=== PATIENT | male | born 1985 | race Caucasian/White ===

== ENCOUNTER → 2020-07-15 | Outpatient (CLI) | payer OTHER ==
[~2020-07-15] MED LIST: ADMELOG100 UNIT/1 SC; AMARYL2 MG PO; AMMONIUM LACTA225 GM TP; AUGMENTIN 875-1 EACH PO; BENTYL 10MG CAP10 MG PO; BETADINE OINT 101 GM TOP; BUPROPION XL300 MG PO; CEFPODOXIME PR200 MG PO; CIPRO500 MG PO; CLINDAMYCIN HC300 MG PO; DECADRON6 MG PO; FELDENE10 MG PO; FLEXERIL 10 MG10 MG PO; GLUCOPHAGE 500500 MG GT; GLUCOPHAGE 500500 MG PO; HYDROCHLOROTH12.5 MG PO; HYDROCHLOROTHIA25 MG PO; HYDROCODON-ACE1 EAC4 PO; HYDROXYCHLOROQ200 MG PO; IBUPROFEN800 MG PO; INVOKANA300 MG PO; JANUVIA100 MG PO; JANUVIA25 MG PO; JARDIANCE25 MG PO; LACTINEX TABLET1 EA PO; LANTUS SOL100 UNIT/1 SQ; LANTUS100 UNIT/1 SQ; LISINOPRIL20 MG PO; LISINOPRIL40 MG PO; LODINE CAP 300300 MG PO; METFORMIN HCL500 MG PO; MS CONTIN TAB S15 MG PO; NEURONTIN 300300 MG PO; NOVOLOG 10100 UNITS/ INJ; NOVOLOG FL100 UNIT/1 SQ; OMNICEF 300 MG300 MG PO; OXYCODONE-ACET1 EACH PO; PERCOCET 10-321 EACH PO; TRULICITY1.5 MG/0.5 SQ; VANCOMYCIN IV; VANCOMYCIN1 GM/2002 IV; VIT C PO; VITAMIN C 500500 MG PO; VITAMIN D250000 UNIT PO; Voltaren Gel 1 % TOP; ZOFRAN ODT 4 MG4 MG PO
== END ==
LOC: WCC 08:00
PROC: 0JBR0ZZ Excision of Left Foot Subcutaneous Tissue and Fascia, Open Approach (ICD-10-PCS; principal; 2020-07-15)
DX: E11.621 Type 2 diabetes mellitus with foot ulcer (principal); L97.516 Non-pressure chronic ulcer of other part of right foot with bone involvement without evidence of necrosis; L97.522 Non-pressure chronic ulcer of other part of left foot with fat layer exposed; E11.610 Type 2 diabetes mellitus with diabetic neuropathic arthropathy; L84 Corns and callosities; E66.01 Morbid (severe) obesity due to excess calories; Z79.4 Long term (current) use of insulin; Z89.412 Acquired absence of left great toe; Z89.411 Acquired absence of right great toe

== ENCOUNTER 2020-07-20 16:37 | Emergency (ER) | payer OTHER ==
[~2020-07-20 16:37] MED LIST changes: -ADMELOG100 UNIT/1 SC; -AMARYL2 MG PO; -AMMONIUM LACTA225 GM TP; -BENTYL 10MG CAP10 MG PO; -CEFPODOXIME PR200 MG PO; -DECADRON6 MG PO; -GLUCOPHAGE 500500 MG GT; -HYDROCODON-ACE1 EAC4 PO; -HYDROXYCHLOROQ200 MG PO; -INVOKANA300 MG PO; -LACTINEX TABLET1 EA PO; -LISINOPRIL20 MG PO; -LODINE CAP 300300 MG PO; -OMNICEF 300 MG300 MG PO; -TRULICITY1.5 MG/0.5 SQ; -VANCOMYCIN1 GM/2002 IV; -ZOFRAN ODT 4 MG4 MG PO
[2020-07-20 17:26] LABS: HEMOGLOBIN 15.8 gm/dl (14.0-17.5); RED BLOOD COUNT 5.38 M/UL (4.20-5.50); WHITE BLOOD COUNT 12.7 K/UL (4.5-11.0)
[2020-07-20 17:42] LABS: BUN/CREATININE RATIO 19 (0-10)
[2020-07-20] MEDS ORDERED: CEFPODOXIME PR200 MG PO (18:49)
[2020-07-20] MEDS ORDERED: LODINE CAP 300300 MG PO (18:49)
[2020-07-20] MEDS ORDERED: ZOFRAN ODT 4 MG4 MG PO (18:49)
== END 2020-07-21 00:59 | disposition home or self-care (01) ==
LOC: ER1 16:37
PROVIDERS: Physician Assistant
DX: N10 Acute pyelonephritis (principal); E11.9 Type 2 diabetes mellitus without complications; Z79.4 Long term (current) use of insulin; Z87.440 Personal history of urinary (tract) infections
CPT/HCPCS: 80053; 81001; 83690; 85025; 87077; 87086; 87186; 96365; 96375; 99284; J0696; J1885; J2405; J7030; J7040

== ENCOUNTER → 2020-07-22 | Outpatient (CLI) | payer OTHER ==
[~2020-07-22] MED LIST changes: +ADMELOG100 UNIT/1 SC; +AMARYL2 MG PO; +AMMONIUM LACTA225 GM TP; +BENTYL 10MG CAP10 MG PO; +CEFPODOXIME PR200 MG PO; +DECADRON6 MG PO; +GLUCOPHAGE 500500 MG GT; +HYDROCODON-ACE1 EAC4 PO; +HYDROXYCHLOROQ200 MG PO; +INVOKANA300 MG PO; +LACTINEX TABLET1 EA PO; +LISINOPRIL20 MG PO; +LODINE CAP 300300 MG PO; +OMNICEF 300 MG300 MG PO; +TRULICITY1.5 MG/0.5 SQ; +VANCOMYCIN1 GM/2002 IV; +ZOFRAN ODT 4 MG4 MG PO
== END ==
LOC: WCC 08:00
DX: E11.621 Type 2 diabetes mellitus with foot ulcer (principal); L97.516 Non-pressure chronic ulcer of other part of right foot with bone involvement without evidence of necrosis; L97.525 Non-pressure chronic ulcer of other part of left foot with muscle involvement without evidence of necrosis; E11.610 Type 2 diabetes mellitus with diabetic neuropathic arthropathy; L84 Corns and callosities; E66.01 Morbid (severe) obesity due to excess calories; Z79.4 Long term (current) use of insulin; Z89.411 Acquired absence of right great toe; Z89.412 Acquired absence of left great toe; Z68.42 Body mass index [BMI] 45.0-49.9, adult

== ENCOUNTER → 2020-07-29 | Outpatient (CLI) | payer OTHER | LOC: WCC 08:00 | DX: E11.621 Type 2 diabetes mellitus with foot ulcer (principal); L97.516 Non-pressure chronic ulcer of other part of right foot with bone involvement without evidence of necrosis; L97.522 Non-pressure chronic ulcer of other part of left foot with fat layer exposed; E11.610 Type 2 diabetes mellitus with diabetic neuropathic arthropathy; E66.01 Morbid (severe) obesity due to excess calories; L84 Corns and callosities; Z79.4 Long term (current) use of insulin; Z79.899 Other long term (current) drug therapy; Z68.42 Body mass index [BMI] 45.0-49.9, adult; Z89.411 Acquired absence of right great toe; Z89.412 Acquired absence of left great toe ==

== ENCOUNTER 2020-08-05 15:52 | Emergency (ER) | payer OTHER ==
[~2020-08-05 15:52] MED LIST changes: -ADMELOG100 UNIT/1 SC; -AMARYL2 MG PO; -AMMONIUM LACTA225 GM TP; -BENTYL 10MG CAP10 MG PO; -DECADRON6 MG PO; -GLUCOPHAGE 500500 MG GT; -HYDROCODON-ACE1 EAC4 PO; -HYDROXYCHLOROQ200 MG PO; -INVOKANA300 MG PO; -LACTINEX TABLET1 EA PO; -LISINOPRIL20 MG PO; -OMNICEF 300 MG300 MG PO; -TRULICITY1.5 MG/0.5 SQ; -VANCOMYCIN1 GM/2002 IV
[2020-08-05 16:37] LABS: HEMOGLOBIN 16.7 gm/dl (14.0-17.5); RED BLOOD COUNT 5.7 M/UL (4.20-5.50); WHITE BLOOD COUNT 5.7 K/UL (4.5-11.0)
[2020-08-05 17:10] LABS: BUN/CREATININE RATIO 16 (0-10)
[2020-08-05] MEDS ORDERED: DECADRON6 MG PO (18:11)
[2020-08-05] MEDS ORDERED: HYDROXYCHLOROQ200 MG PO (18:11)
[2020-08-05] MEDS ORDERED: ZOFRAN ODT 4 MG4 MG PO (18:11)
== END 2020-08-05 21:37 | disposition home or self-care (01) ==
LOC: ER1 15:52
PROVIDERS: Family Medicine
DX: U07.1 COVID-19 (principal); E11.65 Type 2 diabetes mellitus with hyperglycemia; S91.302A Unspecified open wound, left foot, initial encounter; S91.301A Unspecified open wound, right foot, initial encounter; R00.0 Tachycardia, unspecified; E66.01 Morbid (severe) obesity due to excess calories; Z89.412 Acquired absence of left great toe; Z89.411 Acquired absence of right great toe; Z79.4 Long term (current) use of insulin
CPT/HCPCS: 71045; 80053; 82550; 82553; 83605; 83874; 84484; 85025; 87040; 93005; 96374; 96375; 99284; J1100; J2405; J7030; M0239

== ENCOUNTER → 2020-08-08 | Outpatient (CLI) | payer OTHER ==
[~2020-08-08] MED LIST changes: +ADMELOG100 UNIT/1 SC; +AMARYL2 MG PO; +AMMONIUM LACTA225 GM TP; +BENTYL 10MG CAP10 MG PO; +DECADRON6 MG PO; +GLUCOPHAGE 500500 MG GT; +HYDROCODON-ACE1 EAC4 PO; +HYDROXYCHLOROQ200 MG PO; +INVOKANA300 MG PO; +LACTINEX TABLET1 EA PO; +LISINOPRIL20 MG PO; +OMNICEF 300 MG300 MG PO; +TRULICITY1.5 MG/0.5 SQ; +VANCOMYCIN1 GM/2002 IV
== END ==
LOC: WCC 08:00
PROC: 0KBV0ZZ Excision of Right Foot Muscle, Open Approach (ICD-10-PCS; principal; 2020-08-08)
PROC: 0HRMXK3 Replacement of Right Foot Skin with Nonautologous Tissue Substitute, Full Thickness, External Approach (ICD-10-PCS; 2020-08-08)
DX: E11.621 Type 2 diabetes mellitus with foot ulcer (principal); L97.516 Non-pressure chronic ulcer of other part of right foot with bone involvement without evidence of necrosis; L97.522 Non-pressure chronic ulcer of other part of left foot with fat layer exposed; E11.610 Type 2 diabetes mellitus with diabetic neuropathic arthropathy; L84 Corns and callosities; E66.01 Morbid (severe) obesity due to excess calories; Z79.4 Long term (current) use of insulin; Z89.411 Acquired absence of right great toe; Z89.412 Acquired absence of left great toe

== ENCOUNTER 2020-08-11 11:24 | Inpatient (IN) | payer OTHER ==
[~2020-08-11] VITALS: Ht 182.9 cm; Wt 162.1 kg
[~2020-08-11 11:24] MED LIST changes: -ADMELOG100 UNIT/1 SC; -AMARYL2 MG PO; -AMMONIUM LACTA225 GM TP; -BENTYL 10MG CAP10 MG PO; -GLUCOPHAGE 500500 MG GT; -HYDROCODON-ACE1 EAC4 PO; -INVOKANA300 MG PO; -LACTINEX TABLET1 EA PO; -LISINOPRIL20 MG PO; -OMNICEF 300 MG300 MG PO; -TRULICITY1.5 MG/0.5 SQ; -VANCOMYCIN1 GM/2002 IV
[2020-08-11] MEDS ORDERED: LANTUS100 UNIT/1 SQ (20:53)
[2020-08-11] MEDS ORDERED: ADMELOG100 UNIT/1 SC (20:55)
[2020-08-11] MEDS ORDERED: TRULICITY1.5 MG/0.5 SQ (20:56)
[2020-08-11] MEDS ORDERED: GLUCOPHAGE 500500 MG GT (20:58)
[2020-08-11] MEDS ORDERED: LISINOPRIL20 MG PO (20:59)
[2020-08-11] MEDS ORDERED: AMARYL2 MG PO (21:03)
[2020-08-11] MEDS ORDERED: INVOKANA300 MG PO (21:04)
[2020-08-11 22:45] LABS: RED BLOOD COUNT 4.76 M/UL (4.20-5.50); WHITE BLOOD COUNT 7.2 K/UL (4.5-11.0)
[2020-08-11 23:03] LABS: BUN/CREATININE RATIO 23 (0-10)
[2020-08-11 23:12] LABS: HEMOGLOBIN 13.7 gm/dl (14.0-17.5)
--- NOTE | 2020-08-12 19:05 | NUR ---
1000 CALLED AND LEFT MESSAGE FOR DR ROBERTS REGARDING PT BEING TO HEAVY FOR MRI TABLE NO RETURN CALL, DR BOWIE AWARE OF PT BEING TO HEAVY FOR MRI TABLE
[2020-08-13 05:58] LABS: RED BLOOD COUNT 4.82 M/UL (4.20-5.50); WHITE BLOOD COUNT 8.8 K/UL (4.5-11.0)
[2020-08-13 06:23] LABS: BUN/CREATININE RATIO 22 (0-10)
--- NOTE | 2020-08-13 15:01 | NUR ---
PT RETURN FROM OR. BILATERAL POST OP SURGICAL DRSGS CDI. PT ASSESSMET WNL. NO COMPLAINTS AT THIS TIME. RESTING IN BED. ABLE TO FOLLOW COMMAND AND WIGGLES TOES BILATERALLY.
[2020-08-14 04:49] LABS: BUN/CREATININE RATIO 21 (0-10)
--- NOTE | 2020-08-14 05:27 | NUR ---
VANC TROUGH 20.6. NOTIFIED ANGEL OLVERAD SHE ADVISED TO GIVE VANC ORDERED. ADMINISTERED PER ORDERS.
[2020-08-15] MEDS ORDERED: VANCOMYCIN1 GM/2002 IV (12:58)
[2020-08-15] MEDS ORDERED: HYDROCODON-ACE1 EAC4 PO (12:58)
[2020-08-15] MEDS ORDERED: LACTINEX TABLET1 EA PO (13:00)
--- NOTE | 2020-08-15 18:57 | NUR ---
SINGLE LUMEN PICC LINE PLACED IN THE RIGHT BASILIC VEIN. NO COMPLICATIONS. 48CM INTERNAL LENGTH.
== END 2020-08-15 17:48 | disposition home health service (06) | DRG 628 ==
LOC: M/S 18:50
PROVIDERS: Hospitalist; Podiatrist Foot & Ankle Surgery; ADMIT Internal Medicine
PROC: 0HRMXK3 Replacement of Right Foot Skin with Nonautologous Tissue Substitute, Full Thickness, External Approach (ICD-10-PCS; 2020-08-13)
PROC: 0QBN0ZZ Excision of Right Metatarsal, Open Approach (ICD-10-PCS; principal; 2020-08-13 11:00)
PROC: 02HV33Z Insertion of Infusion Device into Superior Vena Cava, Percutaneous Approach (ICD-10-PCS; 2020-08-15)
PROC: B548ZZA Ultrasonography of Superior Vena Cava, Guidance (ICD-10-PCS; 2020-08-15)
DX: E11.69 Type 2 diabetes mellitus with other specified complication (principal); U07.1 COVID-19; M86.8X7 Other osteomyelitis, ankle and foot; Z68.42 Body mass index [BMI] 45.0-49.9, adult; E11.621 Type 2 diabetes mellitus with foot ulcer; E11.40 Type 2 diabetes mellitus with diabetic neuropathy, unspecified; F17.290 Nicotine dependence, other tobacco product, uncomplicated; I10 Essential (primary) hypertension; E66.01 Morbid (severe) obesity due to excess calories; Z79.4 Long term (current) use of insulin; Z79.899 Other long term (current) drug therapy; Z89.412 Acquired absence of left great toe; Z89.411 Acquired absence of right great toe; Z90.49 Acquired absence of other specified parts of digestive tract; Z83.3 Family history of diabetes mellitus
CPT/HCPCS: 36415; 80048; 80053; 80202; 82962; 83036; 85025; 85027; 85652; 86140; 87040; 93926; J0690; J1335; J1650; J2001; J2405; J2704; J2710; J2795; J3010; J3370; J7030; J7070; J7120; Q4133; U0002

== ENCOUNTER → 2020-08-19 | Outpatient (CLI) | payer OTHER ==
[~2020-08-19] MED LIST changes: +ADMELOG100 UNIT/1 SC; +AMARYL2 MG PO; +AMMONIUM LACTA225 GM TP; +BENTYL 10MG CAP10 MG PO; +GLUCOPHAGE 500500 MG GT; +HYDROCODON-ACE1 EAC4 PO; +INVOKANA300 MG PO; +LACTINEX TABLET1 EA PO; +LISINOPRIL20 MG PO; +OMNICEF 300 MG300 MG PO; +TRULICITY1.5 MG/0.5 SQ; +VANCOMYCIN1 GM/2002 IV
== END ==
LOC: WCC 08:00
PROC: 0JBR0ZZ Excision of Left Foot Subcutaneous Tissue and Fascia, Open Approach (ICD-10-PCS; principal; 2020-08-19)
DX: E11.621 Type 2 diabetes mellitus with foot ulcer (principal); L97.422 Non-pressure chronic ulcer of left heel and midfoot with fat layer exposed; L97.414 Non-pressure chronic ulcer of right heel and midfoot with necrosis of bone; E11.52 Type 2 diabetes mellitus with diabetic peripheral angiopathy with gangrene; I96 Gangrene, not elsewhere classified; E11.610 Type 2 diabetes mellitus with diabetic neuropathic arthropathy; I10 Essential (primary) hypertension; M19.90 Unspecified osteoarthritis, unspecified site; F41.8 Other specified anxiety disorders; L84 Corns and callosities; E66.01 Morbid (severe) obesity due to excess calories; Z68.42 Body mass index [BMI] 45.0-49.9, adult; Z89.411 Acquired absence of right great toe; Z89.412 Acquired absence of left great toe; Z79.4 Long term (current) use of insulin; Z79.899 Other long term (current) drug therapy

== ENCOUNTER → 2020-08-26 | Outpatient (CLI) | payer OTHER | LOC: WCC 08:00 | PROC: 0JBR0ZZ Excision of Left Foot Subcutaneous Tissue and Fascia, Open Approach (ICD-10-PCS; principal; 2020-08-26) | DX: E11.621 Type 2 diabetes mellitus with foot ulcer (principal); L97.522 Non-pressure chronic ulcer of other part of left foot with fat layer exposed; L97.516 Non-pressure chronic ulcer of other part of right foot with bone involvement without evidence of necrosis; E11.610 Type 2 diabetes mellitus with diabetic neuropathic arthropathy; L84 Corns and callosities; E66.01 Morbid (severe) obesity due to excess calories; Z89.411 Acquired absence of right great toe; Z89.412 Acquired absence of left great toe; Z79.4 Long term (current) use of insulin; Z79.899 Other long term (current) drug therapy ==

== ENCOUNTER 2020-09-07 17:45 | Emergency (ER) | payer OTHER ==
[~2020-09-07 17:45] MED LIST changes: -AMMONIUM LACTA225 GM TP; -BENTYL 10MG CAP10 MG PO; -OMNICEF 300 MG300 MG PO
== END 2020-09-07 18:26 | disposition home or self-care (01) ==
LOC: ER1 17:45
DX: T82.838A Hemorrhage due to vascular prosthetic devices, implants and grafts, initial encounter (principal); E11.9 Type 2 diabetes mellitus without complications; I10 Essential (primary) hypertension; M86.9 Osteomyelitis, unspecified; Z79.4 Long term (current) use of insulin; Z90.49 Acquired absence of other specified parts of digestive tract
CPT/HCPCS: 99283

== ENCOUNTER → 2020-09-09 | Outpatient (CLI) | payer OTHER ==
[~2020-09-09] MED LIST changes: +AMMONIUM LACTA225 GM TP; +BENTYL 10MG CAP10 MG PO; +OMNICEF 300 MG300 MG PO
== END ==
LOC: WCC 08:04
PROC: 0KBW0ZZ Excision of Left Foot Muscle, Open Approach (ICD-10-PCS; principal; 2020-09-09)
PROC: 0HRMXJZ Replacement of Right Foot Skin with Synthetic Substitute, External Approach (ICD-10-PCS; 2020-09-09)
DX: E11.621 Type 2 diabetes mellitus with foot ulcer (principal); L97.423 Non-pressure chronic ulcer of left heel and midfoot with necrosis of muscle; L97.413 Non-pressure chronic ulcer of right heel and midfoot with necrosis of muscle; E11.52 Type 2 diabetes mellitus with diabetic peripheral angiopathy with gangrene; I96 Gangrene, not elsewhere classified; E11.610 Type 2 diabetes mellitus with diabetic neuropathic arthropathy; L84 Corns and callosities; F41.8 Other specified anxiety disorders; I10 Essential (primary) hypertension; M19.90 Unspecified osteoarthritis, unspecified site; E66.01 Morbid (severe) obesity due to excess calories; Z68.42 Body mass index [BMI] 45.0-49.9, adult; Z79.4 Long term (current) use of insulin; Z79.2 Long term (current) use of antibiotics; Z79.899 Other long term (current) drug therapy; Z89.411 Acquired absence of right great toe; Z89.412 Acquired absence of left great toe
CPT/HCPCS: Q4186

== ENCOUNTER → 2020-09-16 | Outpatient (CLI) | payer OTHER | LOC: WCC 08:00 | DX: E11.621 Type 2 diabetes mellitus with foot ulcer (principal); L97.516 Non-pressure chronic ulcer of other part of right foot with bone involvement without evidence of necrosis; E11.610 Type 2 diabetes mellitus with diabetic neuropathic arthropathy; E66.01 Morbid (severe) obesity due to excess calories; L84 Corns and callosities; Z79.4 Long term (current) use of insulin; Z89.411 Acquired absence of right great toe; Z89.412 Acquired absence of left great toe ==

== ENCOUNTER → 2020-09-23 | Outpatient (CLI) | payer OTHER | LOC: WCC 07:59 | DX: E11.621 Type 2 diabetes mellitus with foot ulcer (principal); L97.521 Non-pressure chronic ulcer of other part of left foot limited to breakdown of skin; L97.515 Non-pressure chronic ulcer of other part of right foot with muscle involvement without evidence of necrosis; E11.610 Type 2 diabetes mellitus with diabetic neuropathic arthropathy; E66.9 Obesity, unspecified; I10 Essential (primary) hypertension; M19.90 Unspecified osteoarthritis, unspecified site; L84 Corns and callosities; Z68.42 Body mass index [BMI] 45.0-49.9, adult; Z79.4 Long term (current) use of insulin; Z89.411 Acquired absence of right great toe; Z89.412 Acquired absence of left great toe | CPT/HCPCS: 97597; Q4186 ==

== ENCOUNTER → 2020-09-30 | Outpatient (CLI) | payer OTHER | LOC: WCC 08:00 | PROC: 0KBW0ZZ Excision of Left Foot Muscle, Open Approach (ICD-10-PCS; principal; 2020-09-30) | PROC: 0HRMXJZ Replacement of Right Foot Skin with Synthetic Substitute, External Approach (ICD-10-PCS; principal; 2020-09-30) | DX: E11.621 Type 2 diabetes mellitus with foot ulcer (principal); L97.422 Non-pressure chronic ulcer of left heel and midfoot with fat layer exposed; L97.413 Non-pressure chronic ulcer of right heel and midfoot with necrosis of muscle; E11.52 Type 2 diabetes mellitus with diabetic peripheral angiopathy with gangrene; I96 Gangrene, not elsewhere classified; E66.01 Morbid (severe) obesity due to excess calories; E11.610 Type 2 diabetes mellitus with diabetic neuropathic arthropathy; L84 Corns and callosities; I10 Essential (primary) hypertension; M19.90 Unspecified osteoarthritis, unspecified site; Z79.4 Long term (current) use of insulin; Z79.899 Other long term (current) drug therapy; Z68.42 Body mass index [BMI] 45.0-49.9, adult; Z89.412 Acquired absence of left great toe; Z89.411 Acquired absence of right great toe | CPT/HCPCS: Q4186 ==

== ENCOUNTER → 2020-10-07 | Outpatient (CLI) | payer OTHER | LOC: WCC 08:00 | PROC: 0JBR0ZZ Excision of Left Foot Subcutaneous Tissue and Fascia, Open Approach (ICD-10-PCS; principal; 2020-10-07) | PROC: 0HRMXJZ Replacement of Right Foot Skin with Synthetic Substitute, External Approach (ICD-10-PCS; principal; 2020-10-07) | DX: E11.621 Type 2 diabetes mellitus with foot ulcer (principal); L97.423 Non-pressure chronic ulcer of left heel and midfoot with necrosis of muscle; L97.413 Non-pressure chronic ulcer of right heel and midfoot with necrosis of muscle; E11.52 Type 2 diabetes mellitus with diabetic peripheral angiopathy with gangrene; I96 Gangrene, not elsewhere classified; E11.610 Type 2 diabetes mellitus with diabetic neuropathic arthropathy; L84 Corns and callosities; I10 Essential (primary) hypertension; M19.90 Unspecified osteoarthritis, unspecified site; E66.01 Morbid (severe) obesity due to excess calories; Z68.42 Body mass index [BMI] 45.0-49.9, adult; Z79.4 Long term (current) use of insulin; Z79.899 Other long term (current) drug therapy; Z89.412 Acquired absence of left great toe; Z89.411 Acquired absence of right great toe | CPT/HCPCS: Q4186 ==

== ENCOUNTER 2020-10-11 23:40 | Observation (INO) | payer OTHER ==
[~2020-10-11] VITALS: Ht 182.9 cm; Wt 168.7 kg
[~2020-10-11 23:40] MED LIST changes: -AMMONIUM LACTA225 GM TP; -BENTYL 10MG CAP10 MG PO; -OMNICEF 300 MG300 MG PO
[2020-10-12 02:42] LABS: HEMOGLOBIN 15.2 gm/dl (14.0-17.5); RED BLOOD COUNT 5.1 M/UL (4.20-5.50); WHITE BLOOD COUNT 11.9 K/UL (4.5-11.0)
[2020-10-12 03:07] LABS: BUN/CREATININE RATIO 19 (0-10)
[2020-10-12] MEDS ORDERED: CLINDAMYCIN HC300 MG PO (05:15)
[2020-10-12] MEDS ORDERED: AMMONIUM LACTA225 GM TP (05:16)
[2020-10-13 02:46] LABS: HEMOGLOBIN 14.8 gm/dl (14.0-17.5); RED BLOOD COUNT 5.07 M/UL (4.20-5.50)
[2020-10-13 02:56] LABS: WHITE BLOOD COUNT 6.4 K/UL (4.5-11.0)
[2020-10-13 03:38] LABS: BUN/CREATININE RATIO 24 (0-10)
[2020-10-13] MEDS ORDERED: OMNICEF 300 MG300 MG PO (11:26)
--- NOTE | 2020-10-13 12:40 | NUR ---
INSTRUCTED ON FOLLOW UP APPOINTMENT, COMPLETE OMNICEF ,INSTRUCTIONS ON PYLO, UTI, OSTEO., VERBALIZED UNDERSTANDING. EVERETT GUERRERO R.N.
== END 2020-10-13 14:09 | disposition home or self-care (01) ==
LOC: ER1 23:40 → M/S 10-12 03:46 → CDU 10-12 03:46 → M/S 10-12 03:46
PROVIDERS: Physician Assistant; ADMIT Internal Medicine
DX: R10.9 Unspecified abdominal pain (principal); R30.0 Dysuria; E11.9 Type 2 diabetes mellitus without complications; I10 Essential (primary) hypertension; E66.01 Morbid (severe) obesity due to excess calories; E78.5 Hyperlipidemia, unspecified; K76.0 Fatty (change of) liver, not elsewhere classified; Z20.822 Contact with and (suspected) exposure to COVID-19; Z87.39 Personal history of other diseases of the musculoskeletal system and connective tissue; Z90.49 Acquired absence of other specified parts of digestive tract; Z83.3 Family history of diabetes mellitus; Z79.4 Long term (current) use of insulin; Z79.2 Long term (current) use of antibiotics; Z79.899 Other long term (current) drug therapy
CPT/HCPCS: 36415; 80048; 80053; 81001; 82962; 83690; 85025; 87086; 96365; 96375; 99285; G0378; J1335; J1650; J1885; J2405; U0002

== ENCOUNTER → 2020-10-14 | Outpatient (CLI) | payer OTHER ==
[~2020-10-14] MED LIST changes: +AMMONIUM LACTA225 GM TP; +BENTYL 10MG CAP10 MG PO; +OMNICEF 300 MG300 MG PO
== END ==
LOC: WCC 08:00
PROC: 0JBR0ZZ Excision of Left Foot Subcutaneous Tissue and Fascia, Open Approach (ICD-10-PCS; principal; 2020-10-14)
PROC: 0JBQ0ZZ Excision of Right Foot Subcutaneous Tissue and Fascia, Open Approach (ICD-10-PCS; 2020-10-14)
DX: E11.621 Type 2 diabetes mellitus with foot ulcer (principal); L97.422 Non-pressure chronic ulcer of left heel and midfoot with fat layer exposed; L97.412 Non-pressure chronic ulcer of right heel and midfoot with fat layer exposed; E11.52 Type 2 diabetes mellitus with diabetic peripheral angiopathy with gangrene; I96 Gangrene, not elsewhere classified; E11.610 Type 2 diabetes mellitus with diabetic neuropathic arthropathy; L84 Corns and callosities; I10 Essential (primary) hypertension; M19.90 Unspecified osteoarthritis, unspecified site; E66.01 Morbid (severe) obesity due to excess calories; Z68.42 Body mass index [BMI] 45.0-49.9, adult; Z89.411 Acquired absence of right great toe; Z89.412 Acquired absence of left great toe; Z79.4 Long term (current) use of insulin; Z79.899 Other long term (current) drug therapy

== ENCOUNTER → 2020-10-21 | Outpatient (CLI) | payer OTHER | LOC: WCC 08:00 | PROC: 0JBR0ZZ Excision of Left Foot Subcutaneous Tissue and Fascia, Open Approach (ICD-10-PCS; principal; 2020-10-21) | DX: E11.621 Type 2 diabetes mellitus with foot ulcer (principal); L97.422 Non-pressure chronic ulcer of left heel and midfoot with fat layer exposed; L97.411 Non-pressure chronic ulcer of right heel and midfoot limited to breakdown of skin; E11.52 Type 2 diabetes mellitus with diabetic peripheral angiopathy with gangrene; I96 Gangrene, not elsewhere classified; E11.610 Type 2 diabetes mellitus with diabetic neuropathic arthropathy; I10 Essential (primary) hypertension; M19.90 Unspecified osteoarthritis, unspecified site; L84 Corns and callosities; E66.01 Morbid (severe) obesity due to excess calories; Z68.42 Body mass index [BMI] 45.0-49.9, adult; Z79.4 Long term (current) use of insulin; Z79.899 Other long term (current) drug therapy; Z89.411 Acquired absence of right great toe; Z89.412 Acquired absence of left great toe | CPT/HCPCS: 97597 ==

== ENCOUNTER → 2020-10-21 | Outpatient (CLI) | payer OTHER | LOC: OPSV 08:30 | DX: Z45.2 Encounter for adjustment and management of vascular access device (principal) | CPT/HCPCS: G0463 ==

== ENCOUNTER → 2020-10-28 | Outpatient (CLI) | payer OTHER | LOC: WCC 08:00 | DX: E11.621 Type 2 diabetes mellitus with foot ulcer (principal); L97.516 Non-pressure chronic ulcer of other part of right foot with bone involvement without evidence of necrosis; E11.610 Type 2 diabetes mellitus with diabetic neuropathic arthropathy; L84 Corns and callosities; E66.01 Morbid (severe) obesity due to excess calories; Z79.4 Long term (current) use of insulin; Z68.42 Body mass index [BMI] 45.0-49.9, adult; Z89.411 Acquired absence of right great toe; Z89.412 Acquired absence of left great toe | CPT/HCPCS: 97597 ==

== ENCOUNTER → 2020-11-04 | Outpatient (CLI) | payer OTHER | LOC: WCC 08:00 | DX: E11.621 Type 2 diabetes mellitus with foot ulcer (principal); L97.522 Non-pressure chronic ulcer of other part of left foot with fat layer exposed; E11.610 Type 2 diabetes mellitus with diabetic neuropathic arthropathy; L84 Corns and callosities; E66.01 Morbid (severe) obesity due to excess calories; Z68.42 Body mass index [BMI] 45.0-49.9, adult; Z89.411 Acquired absence of right great toe; Z89.412 Acquired absence of left great toe; Z79.4 Long term (current) use of insulin; Z79.899 Other long term (current) drug therapy ==

== ENCOUNTER → 2020-11-11 | Outpatient (CLI) | payer OTHER | LOC: WCC 08:00 | DX: E11.621 Type 2 diabetes mellitus with foot ulcer (principal); L97.516 Non-pressure chronic ulcer of other part of right foot with bone involvement without evidence of necrosis; E11.610 Type 2 diabetes mellitus with diabetic neuropathic arthropathy; L84 Corns and callosities; E66.01 Morbid (severe) obesity due to excess calories; Z79.4 Long term (current) use of insulin; Z89.411 Acquired absence of right great toe; Z89.412 Acquired absence of left great toe | CPT/HCPCS: 97597 ==

== ENCOUNTER → 2020-11-18 | Outpatient (CLI) | payer OTHER | LOC: WCC 08:15 | DX: E11.621 Type 2 diabetes mellitus with foot ulcer (principal); L84 Corns and callosities; E66.01 Morbid (severe) obesity due to excess calories; Z79.4 Long term (current) use of insulin; Z89.411 Acquired absence of right great toe; Z89.412 Acquired absence of left great toe | CPT/HCPCS: 97597 ==

== ENCOUNTER → 2020-11-25 | Outpatient (CLI) | payer OTHER | LOC: WCC 08:00 | DX: E11.621 Type 2 diabetes mellitus with foot ulcer (principal); E11.610 Type 2 diabetes mellitus with diabetic neuropathic arthropathy; L97.521 Non-pressure chronic ulcer of other part of left foot limited to breakdown of skin; L84 Corns and callosities; E66.01 Morbid (severe) obesity due to excess calories; Z79.4 Long term (current) use of insulin; Z89.411 Acquired absence of right great toe; Z89.412 Acquired absence of left great toe | CPT/HCPCS: 97597 ==

== ENCOUNTER → 2020-12-02 | Outpatient (CLI) | payer OTHER | LOC: WCC 08:00 | DX: E11.621 Type 2 diabetes mellitus with foot ulcer (principal); E11.610 Type 2 diabetes mellitus with diabetic neuropathic arthropathy; L84 Corns and callosities; E66.01 Morbid (severe) obesity due to excess calories; Z79.4 Long term (current) use of insulin; Z89.412 Acquired absence of left great toe ==

== ENCOUNTER → 2020-12-09 | Outpatient (CLI) | payer OTHER | LOC: WCC 08:00 | DX: E11.621 Type 2 diabetes mellitus with foot ulcer (principal); L97.522 Non-pressure chronic ulcer of other part of left foot with fat layer exposed; E11.610 Type 2 diabetes mellitus with diabetic neuropathic arthropathy; L84 Corns and callosities; E66.01 Morbid (severe) obesity due to excess calories; Z68.42 Body mass index [BMI] 45.0-49.9, adult; Z89.411 Acquired absence of right great toe; Z89.412 Acquired absence of left great toe; Z79.4 Long term (current) use of insulin ==

== ENCOUNTER → 2020-12-16 | Outpatient (CLI) | payer OTHER | LOC: WCC 08:00 | DX: E11.621 Type 2 diabetes mellitus with foot ulcer (principal); L97.522 Non-pressure chronic ulcer of other part of left foot with fat layer exposed; E11.610 Type 2 diabetes mellitus with diabetic neuropathic arthropathy; L84 Corns and callosities; E66.01 Morbid (severe) obesity due to excess calories; Z68.42 Body mass index [BMI] 45.0-49.9, adult; Z89.411 Acquired absence of right great toe; Z89.412 Acquired absence of left great toe; Z79.4 Long term (current) use of insulin; Z79.899 Other long term (current) drug therapy ==

== ENCOUNTER → 2020-12-23 | Outpatient (CLI) | payer OTHER | LOC: WCC 08:00 | DX: E11.621 Type 2 diabetes mellitus with foot ulcer (principal); L97.522 Non-pressure chronic ulcer of other part of left foot with fat layer exposed; E11.610 Type 2 diabetes mellitus with diabetic neuropathic arthropathy; L84 Corns and callosities; E66.01 Morbid (severe) obesity due to excess calories; Z68.42 Body mass index [BMI] 45.0-49.9, adult; Z89.411 Acquired absence of right great toe; Z89.412 Acquired absence of left great toe; Z79.4 Long term (current) use of insulin; Z79.899 Other long term (current) drug therapy ==

== ENCOUNTER 2020-12-25 12:08 | Emergency (ER) | payer OTHER ==
[~2020-12-25 12:08] MED LIST changes: -BENTYL 10MG CAP10 MG PO
[2020-12-25 12:50] LABS: HEMOGLOBIN 15.5 gm/dl (14.0-17.5); RED BLOOD COUNT 5.23 M/UL (4.20-5.50); WHITE BLOOD COUNT 7.8 K/UL (4.5-11.0)
[2020-12-25 13:10] LABS: BUN/CREATININE RATIO 16 (0-10)
[2020-12-25] MEDS ORDERED: BENTYL 10MG CAP10 MG PO (16:47)
[2020-12-25] MEDS ORDERED: ZOFRAN ODT 4 MG4 MG PO (16:47)
== END 2020-12-25 17:40 | disposition home or self-care (01) ==
LOC: ER1 12:08
DX: R10.84 Generalized abdominal pain (principal); R11.2 Nausea with vomiting, unspecified; R19.7 Diarrhea, unspecified; E11.9 Type 2 diabetes mellitus without complications; I10 Essential (primary) hypertension; Z79.84 Long term (current) use of oral hypoglycemic drugs; Z79.899 Other long term (current) drug therapy; Z90.49 Acquired absence of other specified parts of digestive tract
CPT/HCPCS: 80053; 81001; 83690; 85025; 96374; 96375; 99284; J2405; Q9967

== ENCOUNTER → 2020-12-30 | Outpatient (CLI) | payer OTHER ==
[~2020-12-30] MED LIST changes: +BENTYL 10MG CAP10 MG PO
== END ==
LOC: WCC 08:00
DX: E11.621 Type 2 diabetes mellitus with foot ulcer (principal); L97.522 Non-pressure chronic ulcer of other part of left foot with fat layer exposed; E11.610 Type 2 diabetes mellitus with diabetic neuropathic arthropathy; E66.01 Morbid (severe) obesity due to excess calories; Z68.42 Body mass index [BMI] 45.0-49.9, adult; L84 Corns and callosities; I10 Essential (primary) hypertension; M19.90 Unspecified osteoarthritis, unspecified site; Z79.4 Long term (current) use of insulin; Z89.412 Acquired absence of left great toe; Z89.411 Acquired absence of right great toe

== ENCOUNTER → 2021-01-06 | Outpatient (CLI) | payer OTHER | LOC: WCC 08:00 | DX: E11.621 Type 2 diabetes mellitus with foot ulcer (principal); L97.522 Non-pressure chronic ulcer of other part of left foot with fat layer exposed; E11.610 Type 2 diabetes mellitus with diabetic neuropathic arthropathy; L84 Corns and callosities; E66.01 Morbid (severe) obesity due to excess calories; Z68.42 Body mass index [BMI] 45.0-49.9, adult; Z79.4 Long term (current) use of insulin; Z89.412 Acquired absence of left great toe; Z89.411 Acquired absence of right great toe ==

== ENCOUNTER → 2021-01-13 | Outpatient (CLI) | payer OTHER | LOC: WCC 08:00 | DX: E11.621 Type 2 diabetes mellitus with foot ulcer (principal); E11.610 Type 2 diabetes mellitus with diabetic neuropathic arthropathy; L84 Corns and callosities; E66.01 Morbid (severe) obesity due to excess calories; Z89.411 Acquired absence of right great toe; Z89.412 Acquired absence of left great toe | CPT/HCPCS: 97597 ==

== ENCOUNTER → 2021-01-20 | Outpatient (CLI) | payer OTHER | LOC: WCC 08:00 | DX: E11.621 Type 2 diabetes mellitus with foot ulcer (principal); L97.522 Non-pressure chronic ulcer of other part of left foot with fat layer exposed; E11.610 Type 2 diabetes mellitus with diabetic neuropathic arthropathy; L84 Corns and callosities; E66.01 Morbid (severe) obesity due to excess calories; Z79.899 Other long term (current) drug therapy; Z79.4 Long term (current) use of insulin; Z79.84 Long term (current) use of oral hypoglycemic drugs; Z68.42 Body mass index [BMI] 45.0-49.9, adult; Z89.411 Acquired absence of right great toe; Z89.412 Acquired absence of left great toe ==

== ENCOUNTER → 2021-01-27 | Outpatient (CLI) | payer OTHER | LOC: WCC 08:00 | DX: E11.621 Type 2 diabetes mellitus with foot ulcer (principal); L97.522 Non-pressure chronic ulcer of other part of left foot with fat layer exposed; Z79.4 Long term (current) use of insulin; E11.610 Type 2 diabetes mellitus with diabetic neuropathic arthropathy; E66.01 Morbid (severe) obesity due to excess calories; Z68.42 Body mass index [BMI] 45.0-49.9, adult; L84 Corns and callosities; Z89.412 Acquired absence of left great toe; Z89.411 Acquired absence of right great toe ==

== ENCOUNTER → 2021-02-10 | Outpatient (CLI) | payer OTHER | LOC: WCC 07:26 | DX: E11.621 Type 2 diabetes mellitus with foot ulcer (principal); L97.522 Non-pressure chronic ulcer of other part of left foot with fat layer exposed; E11.610 Type 2 diabetes mellitus with diabetic neuropathic arthropathy; L84 Corns and callosities; E66.01 Morbid (severe) obesity due to excess calories; Z68.42 Body mass index [BMI] 45.0-49.9, adult; Z89.411 Acquired absence of right great toe; Z89.412 Acquired absence of left great toe; Z79.4 Long term (current) use of insulin; Z79.899 Other long term (current) drug therapy ==

== ENCOUNTER → 2021-02-17 | Outpatient (CLI) | payer OTHER | LOC: WCC 08:15 | DX: E11.621 Type 2 diabetes mellitus with foot ulcer (principal); L97.522 Non-pressure chronic ulcer of other part of left foot with fat layer exposed; E11.610 Type 2 diabetes mellitus with diabetic neuropathic arthropathy; L84 Corns and callosities; E66.01 Morbid (severe) obesity due to excess calories; I10 Essential (primary) hypertension; M19.90 Unspecified osteoarthritis, unspecified site; Z68.42 Body mass index [BMI] 45.0-49.9, adult; Z79.4 Long term (current) use of insulin; Z79.899 Other long term (current) drug therapy; Z89.411 Acquired absence of right great toe; Z89.412 Acquired absence of left great toe ==

== ENCOUNTER → 2021-02-24 | Outpatient (CLI) | payer OTHER | LOC: WCC 08:00 | PROC: 0JBR0ZZ Excision of Left Foot Subcutaneous Tissue and Fascia, Open Approach (ICD-10-PCS; principal; 2021-02-24) | DX: E11.621 Type 2 diabetes mellitus with foot ulcer (principal); L97.422 Non-pressure chronic ulcer of left heel and midfoot with fat layer exposed; E11.610 Type 2 diabetes mellitus with diabetic neuropathic arthropathy; L84 Corns and callosities; I10 Essential (primary) hypertension; M19.90 Unspecified osteoarthritis, unspecified site; E66.01 Morbid (severe) obesity due to excess calories; Z79.4 Long term (current) use of insulin; Z68.42 Body mass index [BMI] 45.0-49.9, adult; Z79.899 Other long term (current) drug therapy; Z89.412 Acquired absence of left great toe; Z89.411 Acquired absence of right great toe ==

== ENCOUNTER → 2021-03-03 | Outpatient (CLI) | payer OTHER | LOC: WCC 08:00 | DX: E11.621 Type 2 diabetes mellitus with foot ulcer (principal); L97.522 Non-pressure chronic ulcer of other part of left foot with fat layer exposed; E11.610 Type 2 diabetes mellitus with diabetic neuropathic arthropathy; E11.40 Type 2 diabetes mellitus with diabetic neuropathy, unspecified; L84 Corns and callosities; E66.01 Morbid (severe) obesity due to excess calories; I10 Essential (primary) hypertension; F41.8 Other specified anxiety disorders; M19.90 Unspecified osteoarthritis, unspecified site; Z68.42 Body mass index [BMI] 45.0-49.9, adult; Z79.4 Long term (current) use of insulin; Z79.899 Other long term (current) drug therapy; Z89.411 Acquired absence of right great toe; Z89.412 Acquired absence of left great toe ==

== ENCOUNTER → 2021-03-10 | Outpatient (CLI) | payer OTHER | LOC: WCC 08:00 | DX: E11.621 Type 2 diabetes mellitus with foot ulcer (principal); L97.522 Non-pressure chronic ulcer of other part of left foot with fat layer exposed; E11.610 Type 2 diabetes mellitus with diabetic neuropathic arthropathy; L84 Corns and callosities; E66.01 Morbid (severe) obesity due to excess calories; Z68.42 Body mass index [BMI] 45.0-49.9, adult; Z89.411 Acquired absence of right great toe; Z89.412 Acquired absence of left great toe; Z79.4 Long term (current) use of insulin; Z79.899 Other long term (current) drug therapy ==

== ENCOUNTER → 2021-03-17 | Outpatient (CLI) | payer OTHER | LOC: WCC 08:15 | DX: E11.621 Type 2 diabetes mellitus with foot ulcer (principal); L97.522 Non-pressure chronic ulcer of other part of left foot with fat layer exposed; E11.610 Type 2 diabetes mellitus with diabetic neuropathic arthropathy; L84 Corns and callosities; E66.01 Morbid (severe) obesity due to excess calories; Z68.42 Body mass index [BMI] 45.0-49.9, adult; Z89.411 Acquired absence of right great toe; Z89.412 Acquired absence of left great toe; Z79.4 Long term (current) use of insulin; Z79.899 Other long term (current) drug therapy ==

== ENCOUNTER → 2021-03-24 | Outpatient (CLI) | payer OTHER | LOC: WCC 07:59 | DX: E11.621 Type 2 diabetes mellitus with foot ulcer (principal); L97.522 Non-pressure chronic ulcer of other part of left foot with fat layer exposed; E11.610 Type 2 diabetes mellitus with diabetic neuropathic arthropathy; L84 Corns and callosities; E66.01 Morbid (severe) obesity due to excess calories; Z68.42 Body mass index [BMI] 45.0-49.9, adult; Z89.411 Acquired absence of right great toe; Z89.412 Acquired absence of left great toe; Z79.4 Long term (current) use of insulin; Z79.899 Other long term (current) drug therapy ==

== ENCOUNTER → 2021-03-31 | Outpatient (CLI) | payer OTHER | LOC: WCC 07:10 | DX: E11.621 Type 2 diabetes mellitus with foot ulcer (principal); L97.522 Non-pressure chronic ulcer of other part of left foot with fat layer exposed; E11.610 Type 2 diabetes mellitus with diabetic neuropathic arthropathy; L84 Corns and callosities; E66.01 Morbid (severe) obesity due to excess calories; Z68.42 Body mass index [BMI] 45.0-49.9, adult; Z89.411 Acquired absence of right great toe; Z89.412 Acquired absence of left great toe; Z79.4 Long term (current) use of insulin; Z79.899 Other long term (current) drug therapy ==

== ENCOUNTER → 2021-04-07 | Outpatient (CLI) | payer OTHER | LOC: WCC 07:57 | DX: E11.621 Type 2 diabetes mellitus with foot ulcer (principal); L97.522 Non-pressure chronic ulcer of other part of left foot with fat layer exposed; Z79.4 Long term (current) use of insulin; E11.610 Type 2 diabetes mellitus with diabetic neuropathic arthropathy; L84 Corns and callosities; E66.01 Morbid (severe) obesity due to excess calories; Z89.412 Acquired absence of left great toe; Z89.411 Acquired absence of right great toe; Z68.42 Body mass index [BMI] 45.0-49.9, adult ==

== ENCOUNTER → 2021-04-13 | Outpatient (CLI) | payer OTHER | LOC: WCC 08:10 | DX: E11.621 Type 2 diabetes mellitus with foot ulcer (principal); L97.522 Non-pressure chronic ulcer of other part of left foot with fat layer exposed; L89.893 Pressure ulcer of other site, stage 3; L89.523 Pressure ulcer of left ankle, stage 3; E11.610 Type 2 diabetes mellitus with diabetic neuropathic arthropathy; L84 Corns and callosities; I10 Essential (primary) hypertension; F41.8 Other specified anxiety disorders; M19.90 Unspecified osteoarthritis, unspecified site; E66.01 Morbid (severe) obesity due to excess calories; Z79.899 Other long term (current) drug therapy; Z79.4 Long term (current) use of insulin; Z89.412 Acquired absence of left great toe; Z89.411 Acquired absence of right great toe ==

== ENCOUNTER → 2021-04-20 | Outpatient (CLI) | payer OTHER | LOC: WCC 08:15 | DX: E11.621 Type 2 diabetes mellitus with foot ulcer (principal); L97.522 Non-pressure chronic ulcer of other part of left foot with fat layer exposed; L89.523 Pressure ulcer of left ankle, stage 3; Z79.4 Long term (current) use of insulin; Z79.84 Long term (current) use of oral hypoglycemic drugs; E11.610 Type 2 diabetes mellitus with diabetic neuropathic arthropathy; L84 Corns and callosities; E66.01 Morbid (severe) obesity due to excess calories; Z89.412 Acquired absence of left great toe; Z89.411 Acquired absence of right great toe | CPT/HCPCS: 87070; 87077; 87205 ==

== ENCOUNTER → 2021-05-04 | Outpatient (CLI) | payer OTHER | LOC: WCC 07:36 | DX: E11.621 Type 2 diabetes mellitus with foot ulcer (principal); L97.422 Non-pressure chronic ulcer of left heel and midfoot with fat layer exposed; L89.523 Pressure ulcer of left ankle, stage 3; E11.610 Type 2 diabetes mellitus with diabetic neuropathic arthropathy; L84 Corns and callosities; E66.01 Morbid (severe) obesity due to excess calories; M19.90 Unspecified osteoarthritis, unspecified site; F41.9 Anxiety disorder, unspecified; Z68.42 Body mass index [BMI] 45.0-49.9, adult; Z79.4 Long term (current) use of insulin; Z79.899 Other long term (current) drug therapy; Z89.411 Acquired absence of right great toe; Z89.412 Acquired absence of left great toe ==

== ENCOUNTER → 2021-05-11 | Outpatient (CLI) | payer OTHER | LOC: WCC 07:39 | DX: E11.621 Type 2 diabetes mellitus with foot ulcer (principal); L97.522 Non-pressure chronic ulcer of other part of left foot with fat layer exposed; L89.893 Pressure ulcer of other site, stage 3; E11.610 Type 2 diabetes mellitus with diabetic neuropathic arthropathy; L84 Corns and callosities; E66.01 Morbid (severe) obesity due to excess calories; Z68.42 Body mass index [BMI] 45.0-49.9, adult; Z79.4 Long term (current) use of insulin; Z89.412 Acquired absence of left great toe; Z89.411 Acquired absence of right great toe ==

== ENCOUNTER → 2021-05-18 | Outpatient (CLI) | payer OTHER | LOC: WCC 07:20 | DX: L89.523 Pressure ulcer of left ankle, stage 3 (principal); E11.621 Type 2 diabetes mellitus with foot ulcer; L97.422 Non-pressure chronic ulcer of left heel and midfoot with fat layer exposed; Z79.84 Long term (current) use of oral hypoglycemic drugs; Z79.4 Long term (current) use of insulin; Z68.42 Body mass index [BMI] 45.0-49.9, adult; E11.610 Type 2 diabetes mellitus with diabetic neuropathic arthropathy; L84 Corns and callosities; E66.01 Morbid (severe) obesity due to excess calories; Z89.411 Acquired absence of right great toe; Z89.412 Acquired absence of left great toe ==

== ENCOUNTER → 2021-05-25 | Outpatient (CLI) | payer OTHER | LOC: WCC 07:15 | DX: E11.621 Type 2 diabetes mellitus with foot ulcer (principal); L97.422 Non-pressure chronic ulcer of left heel and midfoot with fat layer exposed; L89.523 Pressure ulcer of left ankle, stage 3; E11.622 Type 2 diabetes mellitus with other skin ulcer; E11.610 Type 2 diabetes mellitus with diabetic neuropathic arthropathy; L84 Corns and callosities; E66.01 Morbid (severe) obesity due to excess calories; Z68.42 Body mass index [BMI] 45.0-49.9, adult; Z79.4 Long term (current) use of insulin; Z79.899 Other long term (current) drug therapy; Z89.411 Acquired absence of right great toe; Z89.412 Acquired absence of left great toe ==

== ENCOUNTER → 2021-06-02 | Outpatient (CLI) | payer OTHER | LOC: WCC 07:21 | DX: E11.621 Type 2 diabetes mellitus with foot ulcer (principal); L97.522 Non-pressure chronic ulcer of other part of left foot with fat layer exposed; L89.893 Pressure ulcer of other site, stage 3; E11.610 Type 2 diabetes mellitus with diabetic neuropathic arthropathy; L84 Corns and callosities; E66.01 Morbid (severe) obesity due to excess calories; Z68.42 Body mass index [BMI] 45.0-49.9, adult; Z89.411 Acquired absence of right great toe; Z89.412 Acquired absence of left great toe; Z79.4 Long term (current) use of insulin; Z79.899 Other long term (current) drug therapy ==

== ENCOUNTER → 2021-06-09 | Outpatient (CLI) | payer OTHER ==
[~2021-06-09] MED LIST changes: -ADMELOG100 UNIT/1 SC; +HUMALOG100 UNIT/3 SC; -HYDROCHLOROTH12.5 MG PO; +LIPITOR TAB 2020 MG PO; -LISINOPRIL20 MG PO; +LISINOPRIL30 MG PO; +METFORMIN HCL500 M2 PO; -METFORMIN HCL500 MG PO; +PERCOCET 5/325 T1 EA PO; +PROTONIX 40 MG40 M1 PO; +VITAMIN D31250 MCG PO
== END ==
LOC: WCC 07:21
DX: E11.621 Type 2 diabetes mellitus with foot ulcer (principal); L97.522 Non-pressure chronic ulcer of other part of left foot with fat layer exposed; L89.523 Pressure ulcer of left ankle, stage 3; E11.610 Type 2 diabetes mellitus with diabetic neuropathic arthropathy; L84 Corns and callosities; E66.01 Morbid (severe) obesity due to excess calories; Z79.4 Long term (current) use of insulin; Z89.411 Acquired absence of right great toe; Z89.412 Acquired absence of left great toe

== ENCOUNTER 2021-06-16 09:04 | Inpatient (IN) | payer OTHER ==
[~2021-06-16] VITALS: Ht 182.9 cm; Wt 162.8 kg
[~2021-06-16 09:04] MED LIST changes: -LIPITOR TAB 2020 MG PO; -PERCOCET 5/325 T1 EA PO; -PROTONIX 40 MG40 M1 PO; -VITAMIN D31250 MCG PO
[2021-06-16 10:11] LABS: HEMOGLOBIN 15.4 gm/dl (14.0-17.5); RED BLOOD COUNT 5.06 M/UL (4.20-5.50); WHITE BLOOD COUNT 8.6 K/UL (4.5-11.0)
[2021-06-16 10:45] LABS: BUN/CREATININE RATIO 14 (0-10)
[2021-06-16] MEDS ORDERED: VITAMIN D31250 MCG PO (14:57)
[2021-06-16] MEDS ORDERED: LIPITOR TAB 2020 MG PO (14:57)
--- NOTE | 2021-06-16 17:54 | NUR ---
LEFT GREATER TOE 4 X 3 ANKLE 2 X 1.5
[2021-06-17 06:17] LABS: HEMOGLOBIN 13.8 gm/dl (14.0-17.5); RED BLOOD COUNT 4.63 M/UL (4.20-5.50); WHITE BLOOD COUNT 6.5 K/UL (4.5-11.0)
[2021-06-17 07:08] LABS: BUN/CREATININE RATIO 17 (0-10)
[2021-06-18 06:16] LABS: BUN/CREATININE RATIO 14 (0-10)
[2021-06-18 07:15] LABS: HEMOGLOBIN 13.7 gm/dl (14.0-17.5); RED BLOOD COUNT 4.63 M/UL (4.20-5.50); WHITE BLOOD COUNT 6.8 K/UL (4.5-11.0)
[2021-06-19 06:48] LABS: HEMOGLOBIN 14.8 gm/dl (14.0-17.5); RED BLOOD COUNT 4.9 M/UL (4.20-5.50); WHITE BLOOD COUNT 7.3 K/UL (4.5-11.0)
[2021-06-19 07:08] LABS: BUN/CREATININE RATIO 18 (0-10)
[2021-06-20 05:11] LABS: BUN/CREATININE RATIO 20 (0-10)
[2021-06-21 06:22] LABS: HEMOGLOBIN 13.5 gm/dl (14.0-17.5); RED BLOOD COUNT 4.62 M/UL (4.20-5.50)
[2021-06-21 06:38] LABS: WHITE BLOOD COUNT 10.2 K/UL (4.5-11.0)
[2021-06-21 07:17] LABS: BUN/CREATININE RATIO 24 (0-10)
[2021-06-22 06:07] LABS: HEMOGLOBIN 13.6 gm/dl (14.0-17.5); RED BLOOD COUNT 4.67 M/UL (4.20-5.50); WHITE BLOOD COUNT 9.3 K/UL (4.5-11.0)
[2021-06-22 06:38] LABS: BUN/CREATININE RATIO 26 (0-10)
[2021-06-22] MEDS ORDERED: PROTONIX 40 MG40 M1 PO (16:38)
[2021-06-22] MEDS ORDERED: PERCOCET 5/325 T1 EA PO (16:38)
[2021-06-23] MEDS ORDERED: [UNRECOGNIZED DRUG - OTHER] (11:57)
== END 2021-06-23 18:58 | disposition home health service (06) | DRG 617 ==
LOC: ER1 09:04 → MED SURG 4 13:09 → CDU 13:09 → MED SURG 4 17:30
PROVIDERS: Physician Assistant; Podiatrist Foot & Ankle Surgery; ADMIT Internal Medicine
PROC: 0JBR0ZZ Excision of Left Foot Subcutaneous Tissue and Fascia, Open Approach (ICD-10-PCS; 2021-06-19)
PROC: 0HRNXK3 Replacement of Left Foot Skin with Nonautologous Tissue Substitute, Full Thickness, External Approach (ICD-10-PCS; 2021-06-19)
PROC: 0QBP0Z2 Excision of Left Metatarsal, Sesamoid Bone(s) 1st Toe, Open Approach (ICD-10-PCS; 2021-06-19)
PROC: 0Y6N0Z9 Detachment at Left Foot, Partial 1st Ray, Open Approach (ICD-10-PCS; principal; 2021-06-19 19:18)
DX: E11.69 Type 2 diabetes mellitus with other specified complication (principal); Z68.42 Body mass index [BMI] 45.0-49.9, adult; M86.172 Other acute osteomyelitis, left ankle and foot; E11.621 Type 2 diabetes mellitus with foot ulcer; I10 Essential (primary) hypertension; L97.529 Non-pressure chronic ulcer of other part of left foot with unspecified severity; Z20.822 Contact with and (suspected) exposure to COVID-19; E66.01 Morbid (severe) obesity due to excess calories; G47.33 Obstructive sleep apnea (adult) (pediatric); R11.0 Nausea; E11.40 Type 2 diabetes mellitus with diabetic neuropathy, unspecified; M25.872 Other specified joint disorders, left ankle and foot; B95.7 Other staphylococcus as the cause of diseases classified elsewhere; Z90.49 Acquired absence of other specified parts of digestive tract; Z89.412 Acquired absence of left great toe; Z89.411 Acquired absence of right great toe; Z88.8 Allergy status to other drugs, medicaments and biological substances; Z82.49 Family history of ischemic heart disease and other diseases of the circulatory system; Z83.3 Family history of diabetes mellitus; Z99.81 Dependence on supplemental oxygen; Z79.84 Long term (current) use of oral hypoglycemic drugs; Z79.899 Other long term (current) drug therapy; Z79.4 Long term (current) use of insulin
CPT/HCPCS: 36415; 73630; 78315; 80048; 80053; 80202; 82962; 83735; 84100; 85025; 85652; 86140; 87040; 87070; 87205; 93005; 96374; 97161; 99284; A6243; A9503; C1751; J0692; J1100; J1650; J2001; J2250; J2405; J2704; J2795; J3010; J3370; J7030; J7070; J7120; Q4133; U0002

== ENCOUNTER → 2021-06-16 | Outpatient (CLI) | payer OTHER | LOC: WCC 07:21 | DX: E11.621 Type 2 diabetes mellitus with foot ulcer (principal); L97.525 Non-pressure chronic ulcer of other part of left foot with muscle involvement without evidence of necrosis; L89.893 Pressure ulcer of other site, stage 3; E11.610 Type 2 diabetes mellitus with diabetic neuropathic arthropathy; L84 Corns and callosities; E66.01 Morbid (severe) obesity due to excess calories; Z68.42 Body mass index [BMI] 45.0-49.9, adult; Z89.411 Acquired absence of right great toe; Z89.412 Acquired absence of left great toe; Z79.4 Long term (current) use of insulin; Z79.899 Other long term (current) drug therapy | CPT/HCPCS: 87070; 87077; 87186; 87205 ==

== ENCOUNTER 2021-07-29 11:46 | Emergency (ER) | payer OTHER ==
[~2021-07-29 11:46] MED LIST changes: -AMMONIUM LACTA225 GM TP; -HUMALOG100 UNIT/3 SC; +LIPITOR TAB 2020 MG PO; -LISINOPRIL30 MG PO; +PERCOCET 5/325 T1 EA PO; +PROTONIX 40 MG40 M1 PO; +VITAMIN D31250 MCG PO; +[UNRECOGNIZED DRUG - OTHER]
[2021-07-29 12:35] LABS: HEMOGLOBIN 14.1 gm/dl (14.0-17.5); RED BLOOD COUNT 4.76 M/UL (4.20-5.50); WHITE BLOOD COUNT 11.8 K/UL (4.5-11.0)
[2021-07-29 12:54] LABS: BUN/CREATININE RATIO 22 (0-10)
[2021-07-29] MEDS ORDERED: OMNICEF 300 MG300 MG PO (13:59)
== END 2021-07-29 14:20 | disposition home or self-care (01) ==
LOC: ER1 11:46
PROVIDERS: Student in an Organized Health Care Education/Training Program
DX: N39.0 Urinary tract infection, site not specified (principal); R31.9 Hematuria, unspecified; E11.9 Type 2 diabetes mellitus without complications; I10 Essential (primary) hypertension
CPT/HCPCS: 80048; 81001; 85025; 87077; 87086; 87186; 99284

== ENCOUNTER 2021-07-30 23:52 | Observation (INO) | payer OTHER ==
[~2021-07-30] VITALS: Ht 182.9 cm; Wt 163.3 kg
[2021-07-31 02:00] LABS: HEMOGLOBIN 14.1 gm/dl (14.0-17.5); RED BLOOD COUNT 4.74 M/UL (4.20-5.50)
[2021-07-31 02:27] LABS: BUN/CREATININE RATIO 16 (0-10)
[2021-07-31] MEDS ORDERED: AMMONIUM LACTA225 GM TP (05:16)
[2021-07-31] MEDS ORDERED: ZOLOFT100 MG PO (11:39)
[2021-07-31] MEDS ORDERED: HUMALOG100 UNIT/3 SC (20:55)
[2021-07-31] MEDS ORDERED: ZESTRIL20 MG PO (20:59)
[2021-08-01 06:39] LABS: HEMOGLOBIN 12.6 gm/dl (14.0-17.5); RED BLOOD COUNT 4.44 M/UL (4.20-5.50)
[2021-08-01 06:40] LABS: WHITE BLOOD COUNT 10.3 K/UL (4.5-11.0)
[2021-08-01 07:10] LABS: BUN/CREATININE RATIO 15 (0-10)
[2021-08-01] MEDS ORDERED: CARVEDILOL12.5 MG PO (11:10)
[2021-08-01] MEDS ORDERED: LEVOFLOXACIN750 MG PO (11:10)
[2021-08-01] MEDS ORDERED: ZOFRAN 4 MG TAB4 MG PO (11:10)
== END 2021-08-01 11:55 | disposition home or self-care (01) ==
LOC: ER1 23:52 → CDU 07-31 04:15 → 3 EAST 07-31 18:43 → M/S 07-31 20:33
PROVIDERS: Emergency Medicine; ADMIT Internal Medicine
DX: A41.9 Sepsis, unspecified organism (principal); N10 Acute pyelonephritis; B96.20 Unspecified Escherichia coli [E. coli] as the cause of diseases classified elsewhere; E11.65 Type 2 diabetes mellitus with hyperglycemia; I10 Essential (primary) hypertension; E66.01 Morbid (severe) obesity due to excess calories; Z68.42 Body mass index [BMI] 45.0-49.9, adult; Z79.4 Long term (current) use of insulin; Z79.899 Other long term (current) drug therapy; Z20.822 Contact with and (suspected) exposure to COVID-19
CPT/HCPCS: 0240U; 80048; 80053; 81001; 82962; 83036; 83605; 85025; 87040; 93005; G0378; J0696; J1650; J1885; J2405; J2543

== ENCOUNTER 2022-02-01 13:55 | Emergency (ER) | payer OTHER ==
[~2022-02-01 13:55] MED LIST changes: +AMMONIUM LACTA225 GM TP; +CARVEDILOL12.5 MG PO; +HUMALOG100 UNIT/3 SC; +LEVOFLOXACIN750 MG PO; +ZESTRIL20 MG PO; +ZOFRAN 4 MG TAB4 MG PO; +ZOLOFT100 MG PO
[2022-02-01 15:55] LABS: HEMOGLOBIN 14.1 gm/dl (14.0-17.5); RED BLOOD COUNT 4.77 M/UL (4.20-5.50); WHITE BLOOD COUNT 14.9 K/UL (4.5-11.0)
[2022-02-01 16:20] LABS: BUN/CREATININE RATIO 16 (0-10)
== END 2022-02-01 17:22 | disposition home or self-care (01) ==
LOC: ER1 13:55
PROVIDERS: Physician Assistant
DX: R51.9 Headache, unspecified (principal); R11.2 Nausea with vomiting, unspecified; M79.10 Myalgia, unspecified site; E11.9 Type 2 diabetes mellitus without complications; I10 Essential (primary) hypertension; Z90.49 Acquired absence of other specified parts of digestive tract; Z20.822 Contact with and (suspected) exposure to COVID-19
CPT/HCPCS: 0240U; 80053; 85025; 99283

== ENCOUNTER 2022-02-07 21:15 | Inpatient (IN) | payer OTHER ==
[~2022-02-07] VITALS: Ht 182.9 cm; Wt 162.8 kg
[~2022-02-07 21:15] MED LIST changes: -HUMALOG100 UNIT/3 SC; +HUMALOG100 UNIT/3 SQ
[2022-02-07 22:47] LABS: HEMOGLOBIN 13.4 gm/dl (14.0-17.5); RED BLOOD COUNT 4.61 M/UL (4.20-5.50); WHITE BLOOD COUNT 7.9 K/UL (4.5-11.0)
[2022-02-07 22:56] LABS: BUN/CREATININE RATIO 15 (0-10)
[2022-02-08] MEDS ORDERED: PROTONIX 40 MG40 M1 PO (10:14)
[2022-02-08] MEDS ORDERED: ONDANSETRON HCL8 MG PO (11:23)
[2022-02-09 04:49] LABS: HEMOGLOBIN 14.5 gm/dl (14.0-17.5); WHITE BLOOD COUNT 7.9 K/UL (4.5-11.0)
[2022-02-09 05:35] LABS: BUN/CREATININE RATIO 14 (0-10)
[2022-02-10 04:58] LABS: HEMOGLOBIN 12.9 gm/dl (14.0-17.5); RED BLOOD COUNT 4.52 M/UL (4.20-5.50); WHITE BLOOD COUNT 6.2 K/UL (4.5-11.0)
[2022-02-10 05:31] LABS: BUN/CREATININE RATIO 18 (0-10)
[2022-02-11 03:48] LABS: HEMOGLOBIN 12.7 gm/dl (14.0-17.5); RED BLOOD COUNT 4.54 M/UL (4.20-5.50)
[2022-02-11 04:15] LABS: BUN/CREATININE RATIO 18 (0-10)
[2022-02-12 02:26] LABS: HEMOGLOBIN 12.4 gm/dl (14.0-17.5); RED BLOOD COUNT 4.33 M/UL (4.20-5.50); WHITE BLOOD COUNT 7.5 K/UL (4.5-11.0)
[2022-02-12 02:46] LABS: BUN/CREATININE RATIO 23 (0-10)
[2022-02-13 02:23] LABS: HEMOGLOBIN 12.8 gm/dl (14.0-17.5); RED BLOOD COUNT 4.44 M/UL (4.20-5.50); WHITE BLOOD COUNT 7.8 K/UL (4.5-11.0)
[2022-02-13 02:59] LABS: BUN/CREATININE RATIO 21 (0-10)
[2022-02-13] MEDS ORDERED: DOXYCYCLINE HY100 MG PO (12:28)
[2022-02-13] MEDS ORDERED: CEFADROXIL500 MG PO (12:28)
== END 2022-02-13 14:06 | disposition home or self-care (01) | DRG 256 ==
LOC: ER1 21:15 → M/S 02-08 02:11 → CDU 02-08 02:11 → M/S 02-08 07:45
PROVIDERS: Physician Assistant; Podiatrist Foot & Ankle Surgery; ADMIT Internal Medicine
PROC: 0Y6R0Z0 Detachment at Right 2nd Toe, Complete, Open Approach (ICD-10-PCS; principal; 2022-02-10 16:15)
DX: E11.52 Type 2 diabetes mellitus with diabetic peripheral angiopathy with gangrene (principal); Z20.822 Contact with and (suspected) exposure to COVID-19; M86.8X7 Other osteomyelitis, ankle and foot; Z68.42 Body mass index [BMI] 45.0-49.9, adult; K21.9 Gastro-esophageal reflux disease without esophagitis; I10 Essential (primary) hypertension; E11.40 Type 2 diabetes mellitus with diabetic neuropathy, unspecified; L03.031 Cellulitis of right toe; E11.69 Type 2 diabetes mellitus with other specified complication; E66.01 Morbid (severe) obesity due to excess calories; E11.65 Type 2 diabetes mellitus with hyperglycemia; B95.62 Methicillin resistant Staphylococcus aureus infection as the cause of diseases classified elsewhere; Z79.4 Long term (current) use of insulin; Z83.3 Family history of diabetes mellitus
CPT/HCPCS: 36415; 73630; 80048; 80053; 80202; 82962; 83036; 83605; 83735; 85025; 85610; 85652; 86140; 87040; 87070; 87077; 87186; 87205; 93926; 96374; 96375; 99285; J0690; J1650; J1885; J2001; J2185; J2250; J2543; J2704; J3010; J3370; J7030; J7070